=== PATIENT | female | born 2000 | race Caucasian/White ===

== ENCOUNTER 2023-03-20 03:31 | Emergency (ER) | payer OTHER, SELFPAY ==
[2023-03-20 03:42] VITALS: BP 132/78; PULSE 85; RESP 18; O2SAT 97; BMI 22.1
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
--- NOTE | 2023-03-20 03:53 | DI.CT.S_ITS ---
PROCEDURE: CT CERVICAL SPINE WO CON INDICATIONS: trauma TECHNIQUE: Noncontrast 3 mm thick sections acquired from the skull base to the T4 level. Sagittal and coronal reformats were then constructed. For radiation dose reduction, the following was used: automated exposure control, adjustment of mA and/or kV according to patient size. COMPARISON: [facility], CT, CT CHEST W CON, 03/20/2023, 5:06. [facility], CT, CT FACIAL BONES WO CON, 03/20/2023, 4:02. [facility], CT, CT HEAD/BRAIN WO CON, 03/20/2023, 4:02. FINDINGS: Image quality: Excellent. Bones: No fractures or dislocations. Visualized superior ribs are intact. Soft tissues: Pneumomediastinum is partially seen. There is also a mild degree of soft tissue gas involving the lower neck. Prevertebral soft tissues are normal in thickness. No paravertebral hematomas. No apical pneumothoraces. IMPRESSION: Negative for fracture. Pneumomediastinum is seen, with a mild degree of gas also seen within the deep soft tissues of the lower neck. Note: No significant discrepancy from the preliminary report. Dictated by: Filiberto Latham M.D. on 03/20/2023 at 9:07 Approved by: Filiberto Latham M.D. on 03/20/2023 at 9:08
--- NOTE | 2023-03-20 03:53 | DI.CT.S_ITS ---
PROCEDURE: CT FACIAL BONES WO CON INDICATIONS: trauma TECHNIQUE: Noncontrast 2.5 mm thick axial images acquired from the mandible through the frontal sinuses, with coronal and sagittal reformatting. For radiation dose reduction, the following was used: automated exposure control, adjustment of mA and/or kV according to patient size. COMPARISON: [facility], CT, CT CHEST W CON, 03/20/2023, 5:06. [facility], CT, CT CERVICAL SPINE WO CON, 03/20/2023, 4:02. [facility], CT, CT HEAD/BRAIN WO CON, 03/20/2023, 4:02. FINDINGS: Image quality: Excellent. Bones and teeth: Orbital khan are intact. Sinus khan show no fracture or deformity. Nasal bones and septum are intact. Visualized portions of the mandible demonstrate no fractures or subluxation. Zygomatic arches are intact. Pterygoid plates are intact. Visualized portions of the skull base and auditory canals are intact. Sinuses: Moderate mucosal thickening is seen within the maxillary sinuses. Moderate mucosal thickening is seen within the ethmoid air cells. No abnormal fluid is seen within the mastoid air cells. Mild leftward nasal septal deviation is seen. Bilateral yaneth bullosa can be seen, with partial opacification. Soft tissues: Right periorbital and central forehead soft tissue thickening is seen. Vascular: Visualized vascular structures appear normal in the absence of contrast. Bony vascular foramina and canals are intact. IMPRESSION: Negative for fracture. Soft tissue thickening can be seen involving the right peripheral soft tissues as well as the forehead. Widespread paranasal sinus disease is seen. Note: No significant discrepancy from the preliminary report. Dictated by: Filiberto Latham M.D. on 03/20/2023 at 9:09 Approved by: Filiberto Latham M.D. on 03/20/2023 at 9:10
--- NOTE | 2023-03-20 03:54 | DI.CT.S_ITS ---
PROCEDURE: CT HEAD/BRAIN WO CON INDICATIONS: trauma TECHNIQUE: Noncontrast 4.5 mm thick angled axial sections acquired from the foramen magnum to the vertex, with coronal and sagittal reformats. For radiation dose reduction, the following was used: automated exposure control, adjustment of mA and/or kV according to patient size. COMPARISON: [facility], CT, CT CHEST W CON, 03/20/2023, 5:06. [facility], CT, CT FACIAL BONES WO CON, 03/20/2023, 4:02. [facility], CT, CT CERVICAL SPINE WO CON, 03/20/2023, 4:02. FINDINGS: Image quality: Excellent. CSF spaces: Basal cisterns are patent. No extra-axial fluid collections. Ventricles are normal in size and shape. Brain: No midline shift. No intracranial masses or hemorrhage. Bloom-white matter interface is normal. Skull and face: Right periorbital soft tissue thickening is seen. Central forehead thickening is also seen. No associated regional fracture can be seen. Calvarium and visualized facial bones are intact, without suspicious lesions. Sinuses: Visualized sinuses and mastoids are clear. IMPRESSION: Left periorbital soft tissue thickening and forehead thickening, without associated fractures. No acute intracranial hemorrhage is seen. No acute intracranial process is seen. Note: No significant discrepancy from the preliminary report. Dictated by: Filiberto Latham M.D. on 03/20/2023 at 9:05 Approved by: Filiberto Latham M.D. on 03/20/2023 at 9:07
[2023-03-20] MEDS: ACETAMINOPHEN 325 MG TABLET PO (04:09)
[2023-03-20] MEDS: ONDANSETRON 4 MG ODT SL (04:09)
[2023-03-20] MEDS: IBUPROFEN 400 MG TABLET PO (04:09)
--- NOTE | 2023-03-20 04:56 | DI.CT.S_ITS ---
PROCEDURE: CT CHEST W CON INDICATIONS: pneumomediastinum TECHNIQUE: After the administration of intravenous contrast, 5 mm thick sections acquired from the pulmonary apices to the posterior costophrenic angles. 1 mm axial lung, 5 mm thick coronal and sagittal reformats and 7 mm axial MIP were acquired. For radiation dose reduction, the following was used: automated exposure control, adjustment of mA and/or kV according to patient size. COMPARISON: [facility], CT, CT CERVICAL SPINE WO CON, 03/20/2023, 4:02. [facility], CT, CT FACIAL BONES WO CON, 03/20/2023, 4:02. [facility], CT, CT HEAD/BRAIN WO CON, 03/20/2023, 4:02. FINDINGS: Image quality: Excellent. Lungs and pleura: No acute air space opacities. No pleural effusions or pneumothorax. Central and peripheral airways are patent and normal in caliber. Mediastinum: Small to moderate pneumomediastinum is seen. Heart size is normal. No pericardial effusion. No mediastinal or hilar adenopathy by size criteria. Thoracic aorta and central pulmonary arteries are normal in size. Esophagus is normal in caliber. No hiatal hernia. Bones and chest wall: No suspicious bony lesions. No vertebral body compression fractures. No axillary or supraclavicular adenopathy by size criteria. Thyroid gland demonstrates no significant abnormality. Abdomen: Visualized upper abdominal solid organs appear normal. Upper abdominal bowel loops are normal in caliber. IMPRESSION: Small amount pneumomediastinum is seen. No associated fractures are seen. Note: No significant discrepancy from the preliminary report. Dictated by: Filiberto Latham M.D. on 03/20/2023 at 9:31 Approved by: Filiberto Latham M.D. on 03/20/2023 at 9:33
[2023-03-20 05:08] LABS: Add Manual Diff / Slide Review NO; Basophils Absolute Auto 100 /uL (0-100); Basophils Percent Auto 0.5 % (0-2); Eosinophils Absolute Auto 100 /uL (0-450); Eosinophils Percent Auto 0.4 % (2-4); Hematocrit 41.3 % (36-46); Hemoglobin 14.1 g/dL (12.0-16.0); Lymphocytes Absolute Auto 3000 /uL (1100-4500); Lymphocytes Percent Auto 20.6 % (25-40); Mean Corpuscular Hemoglobin 30.6 PG (26-34); Mean Corpuscular Volume 89.9 fL (80-100); Monocytes Absolute Auto 1400 /uL (0-900); Monocytes Percent Auto 9.4 % (3-14); Neutrophils Absolute Auto 10100 /uL (1500-7000); Neutrophils Percent Auto 69.1 % (50-75); Platelet Count 234 X10^3/uL (150-400); Red Cell Distribution Width 13.9 % (11.6-14.8); White Blood Cell Count 14.7 X10^3/uL (4.5-11.0)
[2023-03-20 05:21] LABS: Alanine Aminotransferase 15 IU/L (<35); Albumin 4.5 g/dL (3.5-5.0); Albumin Globulin Ratio 1.5 (1.0-2.8); Alkaline Phosphatase 78 U/L (38-126); Aspartate Aminotransferase 27 IU/L (14-36); BUN Creatinine Ratio 7.1 (6-22); Bilirubin Total 0.6 mg/dL (0.2-1.3); Blood Urea Nitrogen 3 mg/dL (7-17); Calcium 8.6 mg/dL (8.4-10.2); Carbon Dioxide 25 mmol/L (22-32); Chloride 105 mmol/L (98-107); Estimated Glomerular Filt Rate > 60 mL/min (>60); Globulin 3.1 g/dL (1.7-4.1); Glucose 102 mg/dL (70-100); HEMOLYSIS < 15 (0-50); Potassium 3.9 mmol/L (3.4-5.1); Sodium 141 mmol/L (137-145); Total Protein 7.6 g/dL (6.3-8.2)
--- NOTE | 2023-03-20 05:24 | PC.NURSE ---
patient placed in paper scrubs due to the strings in her pajamas that she wore into the hospital. Patients belongings including her wallet, shoes and vape pen removed from her person and locked up at nurses station. Physician aware
[2023-03-20] MEDS: SODIUM CHLORIDE 0.9% 1,000 ML 1000 ML IV (05:35)
[2023-03-20 05:46] LABS: Appearance Urine UA CLEAR; Bilirubin Urine UA NEGATIVE (NEGATIVE); Color Urine UA YELLOW; Glucose Urine UA NEGATIVE (Negative); Ketones Urine UA TRACE (NEGATIVE); Leukocyte Esterase Urine UA 1+ (NEGATIVE); Nitrite Urine UA NEGATIVE (Negative); Occult Blood Urine UA NEGATIVE (Negative); Protein Urine UA NEGATIVE (Negative); Specific Gravity Urine UA <=1.005 (1.000-1.035); Urobilinogen Urine UA 0.2 E.U./dL (0.2)
[2023-03-20 05:48] LABS: Bacteria Urine Few (2-10); Culture Indicated Urine Specimen Cultured; Mucus Urine 1+ (Negative); RBC Urine None Seen (0-5/HPF); Squamous Epithelial Cell Urine 1-5 /HPF (0-5/HPF); WBC Urine 0-1/HPF (0-5/HPF)
[2023-03-20 05:49] LABS: Ur Creatinine Normal (Normal); Ur Specific Gravity Normal (Normal); Urine pH Normal (Normal)
[2023-03-20 05:50] LABS: UR Morphine/Opiate cutoff 300 Negative (Negative); Urine Amphetamines Negative (Negative); Urine Barbiturates Negative (Negative); Urine Benzodiazepines Negative (Negative); Urine Cocaine Negative (Negative); Urine MDMA Negative (Negative); Urine Methadone Negative (Negative); Urine Methamphetamines Negative (Negative); Urine Oxycodone Negative (Negative); Urine Phencyclidine Negative (Negative); Urine Tetrahydrocannabinol Positive (Negative); Urine Tricyclic Antidepressant Negative (Negative)
[2023-03-20 05:55] LABS: Thyroid Stimulating Hormone 2.07 uIU/mL (0.47-4.68)
--- NOTE | 2023-03-20 06:33 | PC.NURSE ---
Pt mom at bedside
[2023-03-20 08:51] LABS: Ethanol (ETOH) 54 mg/dL
--- NOTE | 2023-03-20 08:54 | CM.SWNOTE ---
DCP: Received call from Dr. Martin in ED requesting assistance with this 22yr old female. Provider reports that patient is not suicidal but does need some community resources. Notified Dr. Martin that we have no ED MECHANICAL PROCESS ENGINEER today. However, this MECHANICAL PROCESS ENGINEER will provide packet to ED to provide to patient and request that she f/u tomorrow 5-1 when MECHANICAL PROCESS ENGINEER here. P: Anticipate home resources given. BRYAN
[2023-03-20 09:40] VITALS: BP 130/67; PULSE 82; RESP 19; O2SAT 97
--- NOTE | 2023-03-21 13:12 | CM.SWNOTE ---
SENIOR COLDFUSION DEVELOPER f/u Note SENIOR COLDFUSION DEVELOPER reviews EMR and request for ED f/u call for patient. SENIOR COLDFUSION DEVELOPER calls patient's phone number, it goes directly to voicemail message and patient's VM box is full. SENIOR COLDFUSION DEVELOPER to attempt to call patient again at another time. Luz Maria Watters, [employer]
== END 2023-03-20 09:40 | disposition home or self-care (01) ==
PROVIDERS: Emergency Medicine; Emergency Provider Emergency Medicine; PCP Registered Nurse General Practice
DX: S00.81XA Abrasion of other part of head, initial encounter (principal); S00.83XA Contusion of other part of head, initial encounter; F10.920 Alcohol use, unspecified with intoxication, uncomplicated; J98.2 Interstitial emphysema; F32.9 Major depressive disorder, single episode, unspecified; W18.30XA Fall on same level, unspecified, initial encounter
CPT/HCPCS: 36415; 70450; 70486; 71260; 72125; 80053; 80305; 80320; 81001; 81025; 84443; 85025; 87086; 99284; 99285; Q9967